=== PATIENT | male | born 1955 | race Caucasian/White ===

== ENCOUNTER 2020-01-22 06:32 | Emergency (ER) | payer MEDICARE ==
[2020-01-22] MEDS ORDERED: NORMAL SALINE 1000 ML 1,000 ML IV ONE ×2 (07:12→07:24)
[2020-01-22 07:24] LABS: ABSOLUTE BASOPHILS # (AUTO) 0.1 10^3/uL (0.0-0.2); ABSOLUTE EOSINOPHILS # (AUTO) 0.2 10^3/uL (0.0-0.6); ABSOLUTE LYMPHOCYTES (AUTO) 0.8 10^3/uL (0.5-4.7); ABSOLUTE MONOCYTES (AUTO) 0.6 10^3/uL (0.1-1.4); ABSOLUTE NEUT (AUTO) 8.2 10^3/uL (1.7-8.2); BASOPHILS % (AUTO) 0.6 % (0-2); EOSINOPHILS % (AUTO) 1.8 % (0-6); HEMATOCRIT 48.1 % (37.9-51.0); HEMOGLOBIN 16.9 g/dL (13.5-17.0); MEAN CORPUSCULAR HEMOGLOBIN 30.2 pg (27.0-33.4); MEAN CORPUSCULAR HGB CONC 35.1 g/dL (32.0-36.0); MEAN CORPUSCULAR VOLUME 86 fl (80-97); PLATELET COUNT 184 10^3/uL (150-450); RED BLOOD COUNT 5.58 10^6/uL (4.35-5.55); RED CELL DISTRIBUTION WIDTH 14.8 % (11.5-14.0); SEGMENTED NEUTROPHILS % (AUTO) 83.6 % (42-78); TOTAL CELLS COUNTED % (AUTO) 100 %; WHITE BLOOD COUNT 9.7 10^3/uL (4.0-10.5)
[2020-01-22 07:43] VITALS: BP 101/78
[2020-01-22 07:45] LABS: ALKALINE PHOSPHATASE 102 U/L (38-126); ANION GAP 7 (5-19); ASPARTATE AMINO TRANSFERASE 21 U/L (17-59); BILIRUBIN,TOTAL 0.7 mg/dL (0.2-1.3); BLOOD UREA NITROGEN 12 mg/dL (7-20); CALCIUM 8.7 mg/dL (8.4-10.2); CARBON DIOXIDE 26 mmol/L (22-30); CHLORIDE 104 mmol/L (98-107); GLUCOSE 105 mg/dL (75-110); POTASSIUM 4.4 mmol/L (3.6-5.0); TOTAL PROTEIN 6.6 g/dL (6.3-8.2)
--- NOTE | 2020-01-22 07:45 | RADIOLOGY REPORT (SQ) ---
EXAM DESCRIPTION: XR CHEST 1 VIEW COMPLETED DATE/TME: 01/22/2020 07:11 CLINICAL HISTORY: 64 years, Male, decreased breath sounds in bases COMPARISON: None. NUMBER OF VIEWS: One TECHNIQUE: AP view the chest LIMITATIONS: None. FINDINGS: The lungs are clear. The heart is normal in size. There is no pneumothorax or pleural effusion. There is no acute fracture. IMPRESSION: No acute cardiopulmonary abnormality. copyright 2010 [employer]- All Rights Reserved
[2020-01-22 07:49] LABS: ALCOHOL < 10 mg/dL (NONE DETECTED)
--- NOTE | 2020-01-22 14:30 | ER Document Report ---
Entered by LIZA SMITH SCRIBE 01/22/20 0711 Acting as scribe for:KATE PARTIDA MD ED General - General Chief Complaint: Abdominal Pain Stated Complaint: ABDOMINAL PAIN Time Seen by Provider: 01/22/20 06:35 Information source: Patient Notes: This 64-year-old male presents to the emergency department complaining of diffuse abdominal pain that started a couple of days ago. Patient reports having normal bowel movements every day with occasional straining to use the bathroom. Patient explains that he went to sleep last night with the abdominal pain and reports that he did not take any medication for the pain. Patient states that he coughed "a little" yesterday and feels "bloated" today. Patient states, "I have been eating to much". Patient said that his abdominal pain is better now. Patient denies back pain, vomiting, nausea, rash, fever, chills, bloody stools, suicide ideation and homicidal ideation. - Related Data Allergies/Adverse Reactions: codeine Allergy (Verified 01/22/20 06:53) Past Medical History - General Information source: Patient - Social History Smoking Status: Current Every Day Smoker Cigarette use (# per day): Yes - 1/2 pack per day Chew tobacco use (# tins/day): No Frequency of alcohol use: None Drug Abuse: None Occupation: Retired[employer] Lives with: Family Family History: Reviewed & Not Pertinent Patient has homicidal ideation: No - Past Medical History Cardiac Medical History: Reports: Hx Hypercholesterolemia Endocrine Medical History: Reports: Hx Hypothyroidism Psychiatric Medical History: Reports: Hx Schizophrenia Past Surgical History: Reports: Hx Cholecystectomy, Hx Orthopedic Surgery - L2 removed., Hx Tonsillectomy Review of Systems - Review of Systems Constitutional: See HPI. denies: Chills, Fever EENT: No symptoms reported Cardiovascular: No symptoms reported Respiratory: See HPI, Cough Gastrointestinal: See HPI, Abdominal pain. denies: Nausea, Vomiting, Rectal bleeding Genitourinary: See HPI. denies: Dysuria Male Genitourinary: No symptoms reported Musculoskeletal: See HPI. denies: Back pain Skin: See HPI. denies: Rash Hematologic/Lymphatic: No symptoms reported Neurological/Psychological: See HPI. denies: Homicidal ideation, Suicidal ideation -: Yes All other systems reviewed and negative Physical Exam - Vital signs Vitals: Temp Pulse Resp BP Pulse Ox 97.8 F 74 18 114/60 89 L 01/22/20 06:38 01/22/20 06:38 01/22/20 06:38 01/22/20 06:38 01/22/20 06:38 - Notes Notes: Physical Exam: General: Alert, appears mild distress. HEENT: Normocephalic. Atraumatic. PERRL. Extraocular movements intact. Oropharynx clear. Neck: Supple. Non-tender. Respiratory: No respiratory distress. Diminished breath sounds in the bases. Cardiovascular: Regular rate and rhythm. Abdominal: Obese. Rotund. Tender to deep palpation to the LLQ, mild rebound present. No distension. Normal Bowel Sounds. Back: No gross abnormalities. Extremities: Moves all four extremities. Upper extremities: Normal inspection. Normal ROM. Lower extremities: Normal inspection. No edema. Normal ROM. Neurological: Normal cognition. AAOx4. Normal speech. Psychological: Normal affect. Normal Mood. Skin: Hot. Dry. [place]. Course - Re-evaluation Re-evalutation: 01/22/20 14:28 Earlier today patient decided he did not have any further abdominal pain and that he did not want to stay in the emergency room any longer. He called his sister 140 this to her to come pick him up. Patient the sister did come to the emergency department and he was discharged as AGAINST MEDICAL ADVICE and to the care of his sister. 01/22/20 14:29 Patient refused to have any CT scan or any further IV fluids or any other medication. Patient stated he was not having any abdominal pain and did not need to be in the emergency department any longer. Patient was signed out AGAINST MEDICAL ADVICE. - Vital Signs Vital signs: Temp Pulse Resp BP Pulse Ox 98.2 F 74 18 101/78 95 01/22/20 06:48 01/22/20 06:38 01/22/20 07:40 01/22/20 07:40 01/22/20 07:40 - Laboratory Result Diagrams: 01/22/20 07:10 01/22/20 07:10 Laboratory results interpreted by me: 01/22/20 01/22/20 07:10 07:10 RBC 5.58 H RDW 14.8 H Lymph % (Auto) 8.0 L Seg Neutrophils % 83.6 H Sodium 136.8 L Labs within normal limits no acute process - EKG Interpretation by Me Additional EKG results interpreted by me: 01/22/20 14:29 Twelve-lead EKG shows normal sinus rhythm rate of 69 borderline T wave abnormalities otherwise no acute process. Discharge - Discharge Clinical Impression: Left against medical advice Disposition: AGAINST MEDICAL ADVICE I personally performed the services described in the documentation, reviewed and edited the documentation which was dictated to the scribe in my presence, and it accurately records my words and actions.
--- NOTE | 2020-01-22 22:29 | EKG REPORT ---
SEVERITY:- BORDERLINE ECG - SINUS RHYTHM BORDERLINE T WAVE ABNORMALITIES : Confirmed by: Rita Mcfadden 22-Jan-2020 22:28:41
== END 2020-01-22 08:36 | disposition left against medical advice (07) ==
LOC: ER 06:32
DX: R10.9 Unspecified abdominal pain (principal); F17.210 Nicotine dependence, cigarettes, uncomplicated; E78.00 Pure hypercholesterolemia, unspecified; Z88.6 Allergy status to analgesic agent
CPT/HCPCS: 93005; 99285; 96360; 36415; 80307; 83605; 83690; 84443; 85025; 80053; 84484; 71045; 93010; J7030

== ENCOUNTER 2020-01-22 16:25 | Emergency (ER) | payer MEDICARE ==
[2020-01-22 19:09] LABS: APPEARANCE,URINE CLEAR; BILIRUBIN,URINE NEGATIVE (NEGATIVE); COLOR,URINE STRAW; GLUCOSE, URINE NEGATIVE (NEGATIVE); KETONES,URINE NEGATIVE (NEGATIVE); PROTEIN,URINE NEGATIVE (NEGATIVE); URINE SPECIFIC GRAVITY 1.003; UROBILINOGEN,URINE NEGATIVE mg/dL (<2.0)
--- NOTE | 2020-01-22 19:09 | ER Document Report ---
ED General - General Chief Complaint: Abdominal Pain Stated Complaint: LOWER ABDOMINAL PAIN Time Seen by Provider: 01/22/20 18:11 - HPI Notes: Chief complaint: Abdominal pain HPI: 64-year-old male with longstanding history of schizophrenia, hypothyroidism and hyperlipidemia seen at this time for evaluation of abdominal pain. Patient is visiting here from [place] staying with his sister and his [id number]. He has been mildly constipated. No diarrhea. No vomiting. No fever. No chills. No dysuria. No back pain. Eating normally. Cramping and intermittent pain epigastrium and left upper quadrant without radiation. Intensity described as mild to moderate. Previous cholecystectomy for cholelithiasis. No other abdominal surgery. Patient was seen here for current symptoms earlier in the day and signed himself out AMA. His labs were unremarkable at that time. He was offered but declined a CT and now has decided to come back to have a CT scan done. - Related Data Allergies/Adverse Reactions: codeine Allergy (Verified 01/22/20 06:53) Past Medical History - General Information source: Patient, [facility] Records - Social History Smoking Status: Current Every Day Smoker Chew tobacco use (# tins/day): No Frequency of alcohol use: None Drug Abuse: None Family History: Reviewed & Not Pertinent Patient has homicidal ideation: No - Past Medical History Cardiac Medical History: Reports: Hx Hypercholesterolemia Endocrine Medical History: Reports: Hx Hypothyroidism Psychiatric Medical History: Reports: Hx Schizophrenia Past Surgical History: Reports: Hx Cholecystectomy, Hx Orthopedic Surgery - L2 removed., Hx Tonsillectomy Review of Systems - Review of Systems Notes: Constitutional: Negative for fever. HENT: Negative for sore throat. Eyes: Negative for visual changes. Cardiovascular: Negative for chest pain. Respiratory: Negative for shortness of breath. Gastrointestinal: As per HPI and. Genitourinary: Negative for dysuria. Musculoskeletal: Negative for back pain. Skin: Negative for rash. Neurological: Negative for headaches, weakness or numbness. Psychiatric: Endorses auditory hallucinations with no change in usual pattern. Denies any suicidal/homicidal ideation. 10 point ROS negative except as marked above and in HPI. Physical Exam - Vital signs Vitals: Temp 97.9 F 01/22/20 16:25 - Notes Notes: GENERAL: Well-developed well-nourished appearing in no acute distress. SKIN: Good turgor no rashes. HEAD: Normocephalic atraumatic. EYES: PERRLA. EOMI. Conjunctivae and sclerae clear. EARS: CANALS AND TMS CLEAR. NOSE: CLEAR. MOUTH: Moist mucosa. Poor dentition. No stridor or edema. No drooling. NECK: Supple. No masses or thyromegaly. No adenopathy. Carotids 2+ without bruits. No JVD. BACK: Symmetrical without tenderness. CHEST: Respirations unlabored. Breath sounds clear and symmetrical. HEART: Regular rhythm. No murmur gallop or rub. ABDOMEN: Mildly obese. Mildly distended. Soft nontender without masses, organomegaly or rebound. Bowel sounds normally active. No bruits. GENITALIA: Deferred. EXTREMITIES: No edema. No calf tenderness. Cap refill less than 1.5 seconds. Dorsalis pedis and posterior tibial pulses 3+ and symmetrical. NEUROLOGICAL: GCS 15. Alert and oriented x3. Normal gait. Fluent speech. Cranial nerves II through XII intact. Sensorimotor and cerebellar normal. Normal tone. PSYCHIATRIC: Appropriate affect. Course - Re-evaluation Re-evalutation: 01/22/20 20:45 CBC and chemistries from earlier today were normal. CT scan shows mild sigmoid diverticulitis without abscess formation or evidence of perforation. I am going to give this man's IV Flagyl and oral Cipro and I think he is stable for outpatient management. Findings and recommendations are discussed with the patient and he is agreeable. - Vital Signs Vital signs: Temp Pulse Resp BP Pulse Ox 97.9 F 74 18 142/62 H 96 01/22/20 16:30 01/22/20 16:30 01/22/20 16:30 01/22/20 16:30 01/22/20 16:30 Discharge - Discharge Clinical Impression: Acute sigmoid diverticulitis Condition: Stable Disposition: HOME, SELF-CARE Additional Instructions: Diverticulitis You have been diagnosed as having diverticulitis. This is an inflammation of a small pouch attached to the colon, called a diverticulum. Many of these small pouches can form on the colon as you get older. They are often caused by constipation. When inflamed or infected, symptoms arise -- usually abdominal pain, constipation or diarrhea, fever, and blood in the stool. Severe diverticulitis may require hospitalization. More mild cases are usually treated with antibiotics and clear liquid diet. As you improve, a diet low in residue (one which forms little stool) is prescribed. When you are better, you should eat a high-fiber diet. Stool softeners (like Metamucil) are usually recommended. Call the doctor or go to the hospital if there is increasing pain, vomiting, high fever, large amounts of blood passed, or if bowel movements cease. Increase oral fluids. Tylenol as needed for pain. Take prescribed antibiotics. Follow-up with referral physician/clinic. Return here as needed for new or worsening symptoms: Pain that is worsening or unimproved Uncontrolled vomiting High fever or shaking chills Overall worsening Prescriptions: Ciprofloxacin HCl [Cipro 500 mg Tablet] 500 mg PO BID #20 tablet Metronidazole [Flagyl 500 mg Tablet] 500 mg PO Q6H #40 tablet
[2020-01-22 19:30] LABS: URINE AMPHETAMINES SCREEN NEGATIVE; URINE BARBITURATES SCREEN NEGATIVE; URINE BENZODIAZEPINES SCREEN NEGATIVE; URINE COCAINE SCREEN NEGATIVE; URINE MARIJUANA (THC) SCREEN NEGATIVE; URINE METHADONE SCREEN NEGATIVE; URINE PHENCYCLIDINE SCREEN NEGATIVE
--- NOTE | 2020-01-22 20:14 | RADIOLOGY REPORT (SQ) ---
CT ABDOMEN PELVIS WITH IV CONTRAST EXAM DATE: 01/22/2020 12:00 AM CDT HISTORY: Lower abdominal pain. COMPARISON: None. TECHNIQUE: CT scan of the abdomen and pelvis was performed with IV contrast. This exam was performed according to our departmental dose-optimization program, which includes automated exposure control, adjustment of the mA and/or kV according to patient size and/or use of iterative reconstruction technique. FINDINGS: There are areas of scarring and atelectasis in the right lower lobe. No pleural or pericardial effusions. No hiatal hernia. There has been a prior cholecystectomy. The liver, spleen, pancreas, adrenal glands, and kidneys are unremarkable. No hydronephrosis or urinary stones are seen. The pelvic organs are also unremarkable. There is diffuse wall thickening with surrounding inflammatory stranding and multiple diverticula within the proximal sigmoid colon. No intraperitoneal free air or fluid collection is visualized. The remainder of the small and large bowel, including the appendix, are normal. The aorta is diffusely atherosclerotic. There is a small fat-containing umbilical hernia. The bony structures are intact. IMPRESSION: Acute sigmoid diverticulitis without perforation or abscess.
[2020-01-22] MEDS ORDERED: METRONIDAZOLE RTU 500 MG/NS 100 ML IV ONE (20:28)
[2020-01-22] MEDS ORDERED: CIPROFLOXACIN HCL 500 MG TABLET PO ONE (20:29)
[2020-01-22 21:29] VITALS: BP 133/80
== END 2020-01-22 21:30 | disposition home or self-care (01) ==
LOC: ER 16:25
DX: K57.32 Diverticulitis of large intestine without perforation or abscess without bleeding (principal); R10.30 Lower abdominal pain, unspecified; F17.200 Nicotine dependence, unspecified, uncomplicated; E78.00 Pure hypercholesterolemia, unspecified; E03.9 Hypothyroidism, unspecified; Z90.49 Acquired absence of other specified parts of digestive tract; Z88.6 Allergy status to analgesic agent
CPT/HCPCS: 99284; 36415; 87040; 84443; 81001; 80307; 74177; A9270; J3490